=== PATIENT | female | born 2000 | race Caucasian/White ===

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

== ENCOUNTER 2020-04-27 14:51 | Emergency (ER) | payer BC, OTHER ==
[~2020-04-27 14:51] MED LIST: Iopamidol-370 76% 500 ML 1 ML ONE
[2020-04-27 15:31] LABS: #Eosinphils 0.3 thou/uL (0.0-0.7); #Monocytes 0.4 thou/uL (0.11-0.59); %Basophils 0.6 % (0.0-1.0); %Eosinophils 3.9 % (0.0-10.0); %Monocytes 5.1 % (0.0-4.0); %Neutrophils 64.5 % (31.0-61.0); Hemoglobin 14.4 g/dL (12.0-16.0); Mean Corpuscular HGB CONC 33.7 g/dL (32.0-36.0); Mean Corpuscular Hemoglobin 32.3 pg (25.0-35.0); Mean Corpuscular Volume 95.9 fL (78.0-98.0); Mean Platelet Volume 7.9 fL (7.4-10.4); Platelet Count 198 thou/uL (130-400); Red Blood Cell (RBC) Count 4.46 mill/uL (4.00-5.20); White Blood Cell (WBC) Count 7.8 thou/uL (4.8-10.8)
[2020-04-27 15:58] LABS: ALT (SGPT) 8 U/L (8-55); AST (SGOT) 15 U/L (5-34); Albumin 4.3 g/dL (3.5-5.0); Alkaline Phosphatase 43 U/L (40-100); Anion Gap 10 mmol/L (10-20); BUN (Urea Nitrogen) 11 mg/dL (7.0-18.7); Bilirubin, Total 0.7 mg/dL (0.2-1.2); Calc. Creatinine Clearance 0 mL/min (70-130); Calcium 9.4 mg/dL (7.8-10.44); Carbon Dioxide 29 mmol/L (22-29); Chloride 103 mmol/L (98-107); Estimated GFR-MDRD 88; Globulin 2.8 g/dL (2.4-3.5); Glucose 93 mg/dL (70-105); Lipase 28 U/L (8-78); Potassium 4.1 mmol/L (3.5-5.1); Protein, Total 7.1 g/dL (6.0-8.3); Sodium 138 mmol/L (136-145)
[2020-04-27 18:01] LABS: BHCG - Serum Negative (NEGATIVE); Pregs Control Background? CLEAR/WHITE (CLR/WHITE); Pregs Control Bar Appear? YES (CONTROL BAR)
[2020-04-27 18:44] LABS: Bilirubin Negative (Negative); Blood, Urine Negative (Negative); Clarity Clear (Clear); Glucose, Urine (Dipstick) Normal (Negative); Ketone, Urine Negative (Negative); Leukocyte Negative Leu/uL (Negative); Nitrite Negative (Negative); Protein, Urine (Dipstick) Negative (Neg-Trace); Specific Gravity, Urine 1.013 (1.002-1.036); Urobilinogen Normal mg/dL (Less than 2)
[2020-04-27 18:47] LABS: Pregnancy Test - Urine (BHCG) Negative (Negative); Pregu Control Background? CLEAR/WHITE (CLR/WHITE); Pregu Control Bar Appear? YES (CONTROL BAR); Specific Gravity 1.013 (1.002-1.036)
--- NOTE | 2020-04-27 19:04 | CT ---
CT ABDOMEN AND PELVIS WITH IV CONTRAST: Indications: Right lower quadrant pain. FINDINGS: Lung bases clear. Liver, spleen, and pancreas unremarkable. Stomach and duodenum unremarkable. Adrenal glands and kidneys unremarkable. No hydronephrosis. Urinary bladder unremarkable. Small bowel loops are normal caliber. Lack of oral and enteric contrast limits evaluation of the inte stinal tract and appendix. Appendix is probably visualized, although not well delineated. No CT evide nce of appendicitis. Images through the pelvis show mildly prominent uterus. The right adnexa is prominent. There are prom inent right ovarian follicles with at least one follicular cyst measuring up to 2 cm. No evidence of significant free fluid. No evidence of mass or adenopathy. IMPRESSION: 1. Limited exam due to lack of oral and enteric contrast with limited fat planes in the abdomen. No C T evidence of appendicitis identified. 2. The right ovary is prominent with prominent ovarian follicles. At least one follicular cyst measur es up to 2 cm. POS: [facility]
== END 2020-04-27 20:15 | disposition home or self-care (01) ==
LOC: ERS 14:51
DX: N83.201 Unspecified ovarian cyst, right side (principal); J45.909 Unspecified asthma, uncomplicated
CPT/HCPCS: 36415; 74177; 80053; 81003; 81025; 83690; 84703; 85025; Q9967